=== PATIENT | male | born 1985 | race Caucasian/White ===

== ENCOUNTER 2020-05-14 14:34 | Emergency (ER) | payer OTHER ==
[~2020-05-14] VITALS: Ht 172.7 cm; Wt 93.0 kg
[~2020-05-14 14:34] MED LIST: ALBU2.5V8 IH; AZIT250T PO; LEVO50TA PO; METH10TA PO; PRED-220 PO
[2020-05-14 14:52] VITALS: BP 126/89
[2020-05-14] MEDS ORDERED: SULF1TAB24 PO (15:43)
--- NOTE | 2020-05-14 15:43 | PHYS DOC ---
Past History Past Medical History: Anxiety, Asthma, Hyperthyroid, Hypothyroid Past Surgical History: No Surgical History Smoking: Quit Less Than 1 Year Alcohol Use: None Drug Use: None Adult General Chief Complaint Chief Complaint: FINGER INJURY HPI HPI Patient is a 34-year-old male patient who presents to the ED today with infection to the right middle finger. Patient is an IV drug user. He states he accidentally stuck his right middle finger in a friend's pocket and now it looks infected. Denies any fever. Review of Systems Review of Systems Constitutional: Denies fever or chills [] Musculoskeletal: Denies back pain or joint pain [] Integument: Reports right middle finger infection Neurologic: Denies headache, focal weakness or sensory changes [] All other systems were reviewed and found to be within normal limits, except as documented in this note. Allergies Allergies Allergies Coded Allergies Type Severity Reaction Last Updated Verified Penicillins Allergy Severe Hives 03/12/14 Yes Physical Exam Physical Exam Constitutional: Well developed, well nourished, no acute distress, non-toxic appearance. [] Skin: Warm, dry, right middle finger distal end with a dark spot suspicious of subungual hematoma. There is cellulitis around the right middle finger nailbed, there is no fluctuance to the area. +2 right radial pulse. Cap refill less than 2 seconds right fingers. Back: No tenderness, no CVA tenderness. [] Extremities: No tenderness, no cyanosis, no clubbing, ROM intact, no edema. [] Neurologic: Alert and oriented X 3, normal motor function, normal sensory function, no focal deficits noted. [] Psychologic: Affect normal, judgement normal, mood normal. [] Current Patient Data Vital Signs Vital Signs Date Time Temp Pulse Resp B/P (MAP) Pulse Ox O2 Delivery O2 Flow Rate FiO2 05/14/20 14:52 97.2 63 18 126/89 (101) 99 05/14/20 14:45 Room Air EKG EKG [] Radiology/Procedures Radiology/Procedures [] Heart Score Risk Factors: Risk Factors: DM, Current or recent (<one month) smoker, HTN, HLP, family history of CAD, obesity. Risk Scores: Risk Factors: DM, Current or recent (<one month) smoker, HTN, HLP, family history of CAD, obesity. Course & Med Decision Making Course & Med Decision Making Pertinent Labs and Imaging studies reviewed. (See chart for details) This is a 34-year-old male patient presenting to the ED today with right middle finger infection, patient is an IV drug user. He appears to have cellulitis around the nailbed. There is no fluctuance to drain. He was discharged with Bactrim. Tetanus up-to-date. Warm compresses recommended to the right middle finger. Recommended for drug use. Dragon Disclaimer Dragon Disclaimer This electronic medical record was generated, in whole or in part, using a voice recognition dictation system. Departure Departure: Impression: Primary Impression: Paronychia of finger of right hand Additional Impression: Subungual hematoma of finger Disposition: 01 DC HOME SELF CARE/HOMELESS Condition: STABLE Referrals: PCP,NO (PCP) Follow-up with your own doctor in 1-2 Patient Instructions: Paronychia, [id number] Additional Instructions: You have infection to the right middle finger. Soak the right middle finger in warm water with Epson salt twice a day until the infection clears up. Take the prescribed antibiotics until completed. Please take Tylenol/ Motrin for pain. Follow-up with your own doctor in 1 to 2 weeks Scripts Sulfamethoxazole/Trimethoprim (BACTRIM DS TABLET) 1 Each Tablet 1 TAB PO BID for 10 Days, #20 TAB 0 Refills Prov: ESTELLA MENCHACA APRN 05/14/20 Problem Qualifiers Additional Impression: Subungual hematoma of finger Encounter type: initial encounter Qualified Codes: S60.10XA - Contusion of unspecified finger with damage to nail, initial encounter ESTELLA MENCHACA APRN May 14, 2020 15:43
== END 2020-05-14 15:45 | disposition home or self-care (01) ==
LOC: ER 14:34
DX: S60.031A Contusion of right middle finger without damage to nail, initial encounter (principal); L03.011 Cellulitis of right finger; F41.9 Anxiety disorder, unspecified; J45.909 Unspecified asthma, uncomplicated; E03.9 Hypothyroidism, unspecified; Z87.891 Personal history of nicotine dependence; Z88.0 Allergy status to penicillin; Y29.XXXA Contact with blunt object, undetermined intent, initial encounter; Y93.89 Activity, other specified; Y92.89 Other specified places as the place of occurrence of the external cause; Y99.8 Other external cause status
CPT/HCPCS: 99283

== ENCOUNTER 2020-05-16 15:18 | Emergency (ER) | payer SELFPAY ==
[~2020-05-16] VITALS: Ht 172.7 cm; Wt 93.0 kg
[2020-05-16 15:18] VITALS: BP 139/87
[~2020-05-16 15:18] MED LIST changes: +SULF1TAB24 PO
[2020-05-16] MEDS ORDERED: HYDROcodone/APAP 5/325MG 1 TAB TABLET ONE (15:54)
--- NOTE | 2020-05-16 15:54 | PHYS DOC ---
Past History Past Medical History: Anxiety, Asthma, Hyperthyroid, Hypothyroid Past Surgical History: No Surgical History Smoking: Quit Less Than 1 Year Alcohol Use: None Drug Use: None Adult General Chief Complaint Chief Complaint: FINGER INJURY HPI HPI Patient is a 34-year-old male who presents for wound evaluation. Patient has right middle finger paronychia status post drug needle inoculation. He was seen at our facility 2 days ago and diagnosed with this, he was sent home with instructions for continued supportive care new prescription for Bactrim. He has been taking antibiotic regularly, has been utilizing warm baths. Nonetheless, patient concerned about mildly fluctuant area on tip of finger, he tried to pop this without any expressible fluid, he is here for evaluation to see if more intervention is required than just antibiotics and supportive care. No fever, no other constitutional signs or symptoms Review of Systems Review of Systems Fourteen body systems of review of systems have been reviewed. See HPI for pertinent positives and negative responses, other matthews all other systems are negative, non-pertinent or non-contributory Allergies Allergies Allergies Coded Allergies Type Severity Reaction Last Updated Verified Penicillins Allergy Severe Hives 03/12/14 Yes Physical Exam Physical Exam Constitutional: Well developed, well nourished, no acute distress, non-toxic appearance. HENT: Normocephalic, atraumatic, bilateral external ears normal, oropharynx moist, no oral exudates, nose normal. Eyes: PERRLA, EOMI, conjunctiva normal, no discharge. Neck: Normal range of motion, no tenderness, supple, no stridor. Cardiovascular: Heart rate regular, sinus rhythm, no murmurs rubs or gallops Lungs & Thorax: Bilateral breath sounds clear to auscultation Abdomen: Bowel sounds normal, soft, no tenderness, no masses, no pulsatile masses. Nonsurgical abdomen, no peritoneal signs Skin: Warm, dry, no erythema, no rash. Back: No tenderness, no CVA tenderness. Extremities: No tenderness, no cyanosis, no clubbing, ROM intact, no edema. Distal tip of third right index finger with signs classic for paronychia. Mild soft tissue fluctuance at distal and lateral tip of nailbed without any concern for excessive abscess or fluid collection, no immediate indication for drainage Neurologic: Alert and oriented X 3, grossly normal motor & sensory function, no focal deficits noted. Psychologic: Affect normal, judgement normal, anxious mood Current Patient Data Vital Signs Vital Signs Date Time Temp Pulse Resp B/P (MAP) Pulse Ox O2 Delivery O2 Flow Rate FiO2 05/16/20 15:18 97.5 70 18 139/87 (104) 99 Room Air EKG EKG [] Radiology/Procedures Radiology/Procedures [] Heart Score Risk Factors: Risk Factors: DM, Current or recent (<one month) smoker, HTN, HLP, family history of CAD, obesity. Risk Scores: Risk Factors: DM, Current or recent (<one month) smoker, HTN, HLP, family history of CAD, obesity. Course & Med Decision Making Course & Med Decision Making Pertinent Labs and Imaging studies reviewed. (See chart for details) Patient's wound evaluation was nonconcerning, he is on appropriate antibiotics, this issue will be self-limiting with continued supportive care practices at home, no indication for incision and drainage today I advised patient to discontinue trying to manipulate and pop area of concern, advised him to adhere to prior restrictions of warm soaks, taking antibiotic is necessary and prescribed to completion etc. Strict return precautions were discussed with good understanding, all questions and concerns addressed prior to ER departure in stable condition Dragon Disclaimer More Disclaimer This electronic medical record was generated, in whole or in part, using a voice recognition dictation system. Departure Departure: Impression: Primary Impression: Paronychia of finger of right hand Disposition: 01 DC HOME SELF CARE/HOMELESS Condition: STABLE Referrals: PCP,NO (PCP) Patient Instructions: Paronychia Additional Instructions: As discussed prior to ER departure, please call your primary care physician first thing in the morning to schedule outpatient follow-up in upcoming 72 hours for repeat evaluation of your finger At this time, you are on the correct antibiotics. Continue home warm soaks and Tylenol/NSAIDs for as needed pain control If any concerning signs or symptoms present prior to outpatient follow-up please do not hesitate to come back for repeat evaluation It was a pleasure to take care of you and I wish you a speedy recovery! DOUGLAS TAYLOR DO May 16, 2020 15:54
[2020-05-16] MEDS ORDERED: HYDROcodone/APAP 5/325MG 1 TAB TABLET PO ONE (16:00)
== END 2020-05-16 16:00 | disposition home or self-care (01) ==
LOC: ER 15:18
DX: L03.011 Cellulitis of right finger (principal); J45.909 Unspecified asthma, uncomplicated; E03.9 Hypothyroidism, unspecified; E05.90 Thyrotoxicosis, unspecified without thyrotoxic crisis or storm; Z87.891 Personal history of nicotine dependence; Z88.0 Allergy status to penicillin
CPT/HCPCS: 99283

== ENCOUNTER 2020-05-17 08:31 | Emergency (ER) | payer SELFPAY ==
[~2020-05-17] VITALS: Ht 175.3 cm; Wt 94.0 kg
[2020-05-17 08:44] VITALS: BP 163/85
--- NOTE | 2020-05-17 08:58 | PHYS DOC ---
Past History Past Medical History: Asthma Past Surgical History: Other Additional Past Surgical Histo: TENDON REPAIR RIGHT INDEX FINGER Smoking: Quit Less Than 1 Year Alcohol Use: None Drug Use: None Adult General Chief Complaint Chief Complaint: FINGER INJURY HPI HPI Patient is a 34-year-old male who presents for right middle finger paronychia. He was seen yesterday for repeat evaluation and discharged home with continued supportive care and use of previously prescribed Bactrim. He reports today with superficial blister involving the lateral aspect of nail matrix, no other concerning signs or symptoms such as fever, chills, motor or sensory changes, focal neurologic deficits. Review of Systems Review of Systems Fourteen body systems of review of systems have been reviewed. See HPI for pertinent positives and negative responses, other matthews all other systems are negative, non-pertinent or non-contributory Allergies Allergies Allergies Coded Allergies Type Severity Reaction Last Updated Verified Penicillins Allergy Severe Hives 05/17/20 Yes Physical Exam Physical Exam Constitutional: Well developed, well nourished, no acute distress, non-toxic appearance. HENT: Normocephalic, atraumatic, bilateral external ears normal, oropharynx moist, no oral exudates, nose normal. Eyes: PERRLA, EOMI, conjunctiva normal, no discharge. Neck: Normal range of motion, no tenderness, no stridor Cardiovascular: Heart rate regular per monitor Lungs & Thorax: Bilateral chest rise Skin: Warm, dry, no erythema, no rash. Extremities: No cyanosis, no clubbing, ROM intact, no edema. Distal tip of third right index finger with signs classic for paronychia. Mild soft tissue fluctuance at distal and lateral tip of nailbed. Less than 1 cm of subcutaneous fluid collection consistent with blister formation with blood present consistent with disease process of paronychia. No acute indication for incision and drainage at this time given superficial nature Neurologic: Alert and oriented X 3, grossly normal motor & sensory function, no focal deficits noted. Psychologic: Affect normal, judgement normal, anxious mood Current Patient Data Vital Signs Vital Signs Date Time Temp Pulse Resp B/P (MAP) Pulse Ox O2 Delivery O2 Flow Rate FiO2 05/17/20 08:44 97.0 81 18 163/85 (111) 100 Room Air EKG EKG [] Radiology/Procedures Radiology/Procedures [] Heart Score Risk Factors: Risk Factors: DM, Current or recent (<one month) smoker, HTN, HLP, family history of CAD, obesity. Risk Scores: Risk Factors: DM, Current or recent (<one month) smoker, HTN, HLP, family history of CAD, obesity. Course & Med Decision Making Course & Med Decision Making Pertinent Labs and Imaging studies reviewed. (See chart for details) Patient seen for second follow-up evaluation after initial diagnosis of right index finger paronychia. On Bactrim. Patient worried well at this time, wanting incision and drainage at visit today but this is not indicated. Continued supportive care advised Patient self-pay, did not have sufficient money to continue visit today. Elected to leave AMA. Patient left prior to me being able to discuss strict return precautions with him and stressed importance of establishing care with local primary care physician in outpatient setting etc. Dragon Disclaimer Dragon Disclaimer This electronic medical record was generated, in whole or in part, using a voice recognition dictation system. Departure Departure: Impression: Primary Impression: Paronychia of finger of right hand Additional Impression: Anxiety about health Disposition: 07 AMA/OUSMANE/LWSEBAS Condition: STABLE Referrals: PCP,NO (PCP) Problem Qualifiers DOUGLAS TAYLOR DO May 17, 2020 08:58
== END 2020-05-17 09:02 | disposition left against medical advice (07) ==
LOC: ER 08:31
DX: L03.011 Cellulitis of right finger (principal); F41.9 Anxiety disorder, unspecified; J45.909 Unspecified asthma, uncomplicated; Z87.891 Personal history of nicotine dependence; Z88.0 Allergy status to penicillin
CPT/HCPCS: 99281

== ENCOUNTER 2020-09-16 02:47 | Emergency (ER) | payer SELFPAY ==
[~2020-09-16] VITALS: Ht 175.3 cm; Wt 94.0 kg
[2020-09-16] MEDS ORDERED: LIDOCAINE/EPI/TETRACAINE TOPICAL GEL 3 ML. TP ONE ×2 (02:52→03:30)
[2020-09-16] MEDS ORDERED: CLIN300C9 PO (03:00)
--- NOTE | 2020-09-16 03:01 | PHYS DOC ---
Past History Past Medical History: Asthma Past Surgical History: Other Additional Past Surgical Histo: TENDON REPAIR RIGHT INDEX FINGER Smoking: Quit Less Than 1 Year Alcohol Use: None Drug Use: None Adult General HPI HPI Patient is an otherwise healthy 34-year-old male, up-to-date on his tetanus vaccination who presents with a laceration. States that about 15 minutes before coming to the emergency department he was putting up cabinets at his house and cut his finger with a gambling box person. Denies any other injuries. Review of Systems Review of Systems Review of systems otherwise unremarkable except noted in HPI Allergies Allergies Allergies Coded Allergies Type Severity Reaction Last Updated Verified Penicillins Allergy Severe Hives 05/17/20 Yes Physical Exam Physical Exam Constitutional: Well developed, well nourished, no acute distress, non-toxic appearance. [] Extremities: Patient has an approximately 1-1/2 cm linear laceration on the lateral side of the second digit in between the DIP and PIP. Hemostasis achieved. Normal flexion and extension. Neurovascular exam intact. Neurologic: Alert and oriented X 3, normal motor function, normal sensory function, no focal deficits noted. [] Psychologic: Affect normal, judgement normal, mood normal. [] EKG EKG [] Radiology/Procedures Radiology/Procedures 1.5 cm linear laceration on the finger. LET placed for anesthesia. Anesthesia achieved. Wound extensively cleaned with sterile saline. 4 50 Prolene sutures placed. Bandaged. [] Heart Score Risk Factors: Risk Factors: DM, Current or recent (<one month) smoker, HTN, HLP, family history of CAD, obesity. Risk Scores: Risk Factors: DM, Current or recent (<one month) smoker, HTN, HLP, family history of CAD, obesity. Course & Med Decision Making Course & Med Decision Making Patient is a 34-year-old male who presents with a chief complaint of finger laceration Vital signs not concerning. Physical exam noted above. L ET placed for anesthesia. Wound extensively cleaned. Started on clindamycin in the ED. Wound sutured closed. Josesito taped. Patient tolerated procedure well. Gave wound care instructions. Started on course of clindamycin. Advised to follow- up with primary care in 5 to 7 days for wound check and suture removal. Advised to come back to the ED with new or concerning symptoms. Patient grateful, verbalized understanding and agreed with plan of discharge. [] Dragon Disclaimer Dragon Disclaimer This electronic medical record was generated, in whole or in part, using a voice recognition dictation system. Departure Departure: Impression: Primary Impression: Finger laceration Disposition: 01 DC HOME SELF CARE/HOMELESS Condition: GOOD Referrals: PCP,JACQUIE (PCP) Patient Instructions: Fingertip Laceration, Sutured Wound Care Additional Instructions: Please read all the attached information. Please take your antibiotics as prescribed. Please keep the area clean, dry and bandaged. You can take Tylenol, ibuprofen and ice as needed for pain control. Please follow-up with your primary care physician in 5 to 7 days for wound check and suture removal. Please come back to the emergency department with any new or concerning symptoms. Scripts Clindamycin Hcl (CLINDAMYCIN HCL) 300 Mg Capsule 1 CAP PO TID for laceration for 5 Days, #15 CAP Prov: TERRANCE MADISON MD 09/16/20 TERRANCE MADISON MD Sep 16, 2020 03:01
[2020-09-16 03:25] VITALS: BP 117/52
[2020-09-16] MEDS ORDERED: CLINDAMYCIN HCL 150 MG CAPSULE PO ONE (03:30)
== END 2020-09-16 03:25 | disposition home or self-care (01) ==
LOC: ER 02:47
DX: S61.210A Laceration without foreign body of right index finger without damage to nail, initial encounter (principal); J45.909 Unspecified asthma, uncomplicated; Z87.891 Personal history of nicotine dependence; Z88.0 Allergy status to penicillin; W27.8XXA Contact with other nonpowered hand tool, initial encounter; Y93.89 Activity, other specified; Y92.89 Other specified places as the place of occurrence of the external cause; Y99.8 Other external cause status
CPT/HCPCS: 12001; 99283